=== PATIENT | male | born 1995 | race Caucasian/White ===

== ENCOUNTER 2017-08-18 21:09 | Emergency (ER) | payer BC, OTHER ==
[~2017-08-18] VITALS: Ht 175.3 cm; Wt 70.5 kg
[2017-08-18] MEDS ORDERED: NS IV 1000 ML 1,000 ML IV STA (22:13)
[2017-08-18 22:15] LABS: BASOPHILS # (AUTO) 0.1 10^3/uL (0.0-0.1); BASOPHILS % (AUTO) 1 % (0-10); EOSINOPHILS # (AUTO) 0.1 10^3/uL (0.0-0.3); EOSINOPHILS % (AUTO) 1 % (0-10); LYMPHOCYTES # (AUTO) 1.7 X 10^3 (1.0-4.0); LYMPHOCYTES % (AUTO) 18 % (12-44); MEAN CORPUSCULAR HEMOGLOBIN 29 PG (25-34); MEAN CORPUSCULAR HGB CONC 37 G/DL (32-36); MEAN CORPUSCULAR VOLUME 79 FL (80-99); MEAN PLATELET VOLUME 11.5 FL (7.4-10.4); MONOCYTES # (AUTO) 1.7 X 10^3 (0.0-1.0); MONOCYTES % (AUTO) 18 % (0-12); NEUTROPHILS # (AUTO) 5.9 X 10^3 (1.8-7.8); NEUTROPHILS % (AUTO) 63 % (42-75); PLATELET COUNT 253 10^3/uL (130-400); RED BLOOD COUNT 6.36 10^6/uL (4.35-5.85); RED CELL DISTRIBUTION WIDTH 12.7 % (10.0-14.5); WHITE BLOOD COUNT 9.5 10^3/uL (4.3-11.0)
[2017-08-18] MEDS ORDERED: ONDANSETRON 4 MG/2 ML (SDV) Z0FRAN IVP ONE ×2 (22:15)
[2017-08-18] MEDS ORDERED: NS IV 1000 ML 1,000 ML IV SCH (22:15)
[2017-08-18 22:26] LABS: ALANINE AMINOTRANSFERASE 21 U/L (0-55); ALBUMIN 4.9 GM/DL (3.2-4.5); ANION GAP 16 MMOL/L (5-14); ASPARTATE AMINO TRANSFERASE 32 U/L (5-34); BILIRUBIN,TOTAL 0.6 MG/DL (0.1-1.0); BLOOD UREA NITROGEN 18 MG/DL (7-18); BUN/CREATININE RATIO 17; CALCIUM 9.7 MG/DL (8.5-10.1); CARBON DIOXIDE 19 MMOL/L (21-32); CHLORIDE 100 MMOL/L (98-107); CREATININE SERUM 1.08 MG/DL (0.60-1.30); GFR ESTIMATED > 60; GLUCOSE 120 MG/DL (70-105); POTASSIUM 3.9 MMOL/L (3.6-5.0); SODIUM 135 MMOL/L (135-145); TOTAL PROTEIN 8.3 GM/DL (6.4-8.2)
[2017-08-18 22:37] LABS: BAND NEUTROPHILS 3 %; BASOPHILS % (MANUAL) 0 %; EOSINOPHILS % (MANUAL) 1 %; LYMPHOCYTES % (MANUAL) 23 %; NEUTROPHILS % (MANUAL) 58 %; REACTIVE LYMPHOCYTES 12 %
[2017-08-18] MEDS ORDERED: LACTATED RINGERS 1,000 ML IV ONE (23:12)
--- NOTE | 2017-08-18 23:19 | ED Abdominal Pain ---
General Chief Complaint: Abdominal/GI Problems Stated Complaint: STOMACH PAIN, DIARRHEA Nursing Triage Note: Pt c/o abdominal pain and diarrhea since yesterday evening. Sepsis Screen: No Definite Risk Source of Information: Patient Exam Limitations: No Limitations History of Present Illness Time Seen By Provider: 23:05 Initial Comments Here with complaint of all over abdominal pain and diarrhea since yesterday. States he has not been unable to eat or drink. Lasts significant urination was yesterday. Denies any recent upper respiratory symptoms. All were all complains of nausea but no vomiting and just not feeling well. Timing/Duration: 1-2 Days Severity/Quality: Moderate, Cramping Location: Generalized Abdomen Radiation: No Radiation Modifying Factors: Worsens With Eating, Improves With Resting Associated Symptoms: No Chest Pain, No Fever/Chills, Nausea/Vomiting, No Shortness of Air, No Weakness Allergies and Home Medications Allergies Coded Allergies: No Known Drug Allergies (Unverified , 08/18/17) Review of Systems Constitutional: see HPI EENTM: No Symptoms Reported Respiratory: No Symptoms Reported Cardiovascular: No Symptoms Reported Gastrointestinal: See HPI, Abdominal Pain, Diarrhea, Nausea, Denies Vomiting Genitourinary: No Symptoms Reported Musculoskeletal: no symptoms reported Skin: no symptoms reported All Other Systems Reviewed Negative Unless Noted: Yes Past Cxkjfif-Apbipe-Waokry Hx Patient Social History Alcohol Use: Regular Use Number of Drinks Today: 0 Alcohol Beverage of Choice: Beer Recreational Drug Use: No 2nd Hand Smoke Exposure: No Recent Foreign Travel: No Contact w/Someone Who Travel: No Recent Infectious Disease Expo: No Physical Abuse: No Sexual Abuse: No Mistreated: No Fear: No Immunizations Up To Date Tetanus Booster (TDap): Less than 5yrs Surgeries History of Surgeries: Yes Surgeries: Orthopedic Respiratory History of Respiratory Disorde: No Cardiovascular History of Cardiac Disorders: No Neurological History of Neurological Disord: No Genitourinary History of Genitourinary Disor: No Gastrointestinal History of Gastrointestinal Di: No Musculoskeletal History of Musculoskeletal Dis: No Psychosocial Suicide Risk Score: 1 Reviewed Nursing Assessment Reviewed/Agree w Nursing PMH: Yes Family Medical History Significant Family History: No Pertinent Family Hx Physical Exam Vital Signs VS - Last 72 Hours, by Label 08/18/17 21:55 Pulse 94 Resp 18 B/P (MAP) 141/96 (111) Pulse Ox 98 O2 Delivery Room Air Capillary Refill : Less Than 3 Seconds General Appearance: WD/WN, no apparent distress HEENT: PERRL/EOMI, pharynx normal Neck: full range of motion, supple Respiratory: lungs clear, normal breath sounds Cardiovascular: no murmur, tachycardia Gastrointestinal: soft, No guarding, No rebound, tenderness (right lower quadrant mostly but a little bit generally) Extremities: non-tender, normal inspection Back: normal inspection, no CVA tenderness, no vertebral tenderness Neurologic/Psychiatric: alert, oriented x 3 Skin: normal color, warm/dry Progress/Results/Core Measures Results/Orders Lab Results Laboratory Tests Test 08/18/17 22:00 08/19/17 00:43 Range/Units White Blood Count 9.5 4.3-11.0 10^3/uL Red Blood Count 6.36 H 4.35-5.85 10^6/uL Hemoglobin 18.5 H 13.3-17.7 G/DL Hematocrit 50 40-54 % Mean Corpuscular Volume 79 L 80-99 FL Mean Corpuscular Hemoglobin 29 25-34 PG Mean Corpuscular Hemoglobin Concent 37 H 32-36 G/DL Red Cell Distribution Width 12.7 10.0-14.5 % Platelet Count 253 130-400 10^3/uL Mean Platelet Volume 11.5 H 7.4-10.4 FL Neutrophils (%) (Auto) 63 42-75 % Lymphocytes (%) (Auto) 18 12-44 % Monocytes (%) (Auto) 18 H 0-12 % Eosinophils (%) (Auto) 1 0-10 % Basophils (%) (Auto) 1 0-10 % Neutrophils # (Auto) 5.9 1.8-7.8 X 10^3 Lymphocytes # (Auto) 1.7 1.0-4.0 X 10^3 Monocytes # (Auto) 1.7 H 0.0-1.0 X 10^3 Eosinophils # (Auto) 0.1 0.0-0.3 10^3/uL Basophils # (Auto) 0.1 0.0-0.1 10^3/uL Neutrophils % (Manual) 58 % Lymphocytes % (Manual) 23 % Monocytes % (Manual) 3 % Eosinophils % (Manual) 1 % Basophils % (Manual) 0 % Band Neutrophils 3 % Reactive Lymphocytes 12 % Blood Morphology Comment NORMAL Sodium Level 135 135-145 MMOL/L Potassium Level 3.9 3.6-5.0 MMOL/L Chloride Level 100 98-107 MMOL/L Carbon Dioxide Level 19 L 21-32 MMOL/L Anion Gap 16 H 5-14 MMOL/L Blood Urea Nitrogen 18 7-18 MG/DL Creatinine 1.08 0.60-1.30 MG/DL Estimat Glomerular Filtration Rate > 60 BUN/Creatinine Ratio 17 Glucose Level 120 H 70-105 MG/DL Calcium Level 9.7 8.5-10.1 MG/DL Total Bilirubin 0.6 0.1-1.0 MG/DL Aspartate Amino Transf (AST/SGOT) 32 5-34 U/L Alanine Aminotransferase (ALT/SGPT) 21 0-55 U/L Alkaline Phosphatase 114 40-136 U/L Total Protein 8.3 H 6.4-8.2 GM/DL Albumin 4.9 H 3.2-4.5 GM/DL Monoscreen POSITIVE H NEGATIVE Urine Color YELLOW Urine Clarity CLEAR Urine pH 6.5 5-9 Urine Specific Boyers 1.015 L 1.016-1.022 Urine Protein 2+ H NEGATIVE Urine Glucose (UA) NEGATIVE NEGATIVE Urine Ketones 2+ H NEGATIVE Urine Nitrite NEGATIVE NEGATIVE Urine Bilirubin NEGATIVE NEGATIVE Urine Urobilinogen NORMAL NORMAL MG/DL Urine Leukocyte Esterase NEGATIVE NEGATIVE Urine RBC (Auto) NEGATIVE NEGATIVE Urine RBC NONE /HPF Urine WBC NONE /HPF Urine Squamous Epithelial Cells RARE /HPF Urine Crystals NONE /LPF Urine Bacteria NEGATIVE /HPF Urine Casts NONE /LPF Urine Mucus NEGATIVE /LPF Urine Culture Indicated NO My Orders Orders - JOCELYN LUCAS MD Cbc And Manual Diff (08/18/17 22:08) Comprehensive Metabolic Panel (08/18/17 22:08) Ua Culture If Indicated (08/18/17 22:08) Ondansetron Injection (Zofran Injectio (08/18/17 22:15) Ns Iv 1000 Ml (Sodium Chloride 0.9%) (08/18/17 22:15) Ondansetron Injection (Zofran Injectio (08/18/17 22:15) Ns Iv 1000 Ml (Sodium Chloride 0.9%) (08/18/17 22:13) Saline Lock/Iv-Start (08/18/17 22:13) Monotest (08/18/17 22:37) Ct Abd/Pelv W (Appendicitis) (08/18/17 23:12) Lactated Ringers (Lr 1000 Ml Iv Solution (08/18/17 23:12) Iohexol Injection (Omnipaque 350 Mg/Ml 1 (08/18/17 23:45) Ns (Ivpb) (Sodium Chloride 0.9% Ivpb Bag (08/18/17 23:45) Rx-Ondansetron Po (Rx-Zofran Po) (08/19/17 01:31) Medications Given in ED Current Medications Medications Dose Ordered Sig/Clarice Route Start Time Stop Time Status Last Admin Dose Admin Iohexol 100 ml ONCE ONCE IV 08/18/17 23:45 08/18/17 23:46 DC 08/18/17 23:39 100 ML Lactated Ringer's 1,000 ml @ 0 mls/hr Q0M ONCE IV 08/18/17 23:12 08/18/17 23:13 DC 08/18/17 23:17 0 MLS/HR Ondansetron HCl 4 mg ONCE ONCE IVP 08/18/17 22:15 08/18/17 22:16 DC 08/18/17 22:15 4 MG Sodium Chloride 100 ml ONCE ONCE IV 08/18/17 23:45 08/18/17 23:46 DC 08/18/17 23:39 80 ML Vital Signs/I&O Vital Sign - Last 12Hours 08/18/17 21:55 Pulse 94 Resp 18 B/P (MAP) 141/96 (111) Pulse Ox 98 O2 Delivery Room Air Intake and Output 08/19/17 00:00 Intake Total 1000 ml Balance 1000 ml Blood Pressure Mean: 111 Progress Note : Progress Note Seen and evaluated. IV, labs, normal saline 1 L bolus and Zofran 4 mg IV ordered. Lab notified staff of abnormal cells consistent with mono. Wayne test ordered and this was rapidly positive. Repeat fluids bolus with 1 L LR. Patient has right lower quadrant pain on exam disproportionate to the rest of the belly exam. CT abdomen and pelvis appendicitis protocol ordered. Monitor patient. 0133: Overall improved. CT findings concerning for enterocolitis. Consideration of inflammatory disease such as Crohn's or infectious etiology noted. Laboratory findings would not indicate significant infectious etiology although still a possibility. We did attempt to get stool sample and patient was unable to provide stool sample while in the ER. I will have him follow-up at [facility] for continuing evaluation and referral to surgeon for endoscopy as needed. Also to collect stool samples if indicated. All findings and concerns as well as discharge instructions were discussed with patient and family who verbalize understanding instructions and agreement with plan. Diagnostic Imaging Diagonstic Imaging: CT Plain Films/CT/US/NM/MRI: abdomen, pelvis Comments Enterocolitis involving terminal ileum and right colon. Leading consideration is inflammatory bowel disease such as Crohn's. Differential diagnosis includes infectious etiology such as salmonella. Reviewed: Reviewed Night Hawk Study, Reviewed by Me Departure Impression Impression: Primary Impression: Generalized abdominal pain Additional Impressions: Diarrhea Qualified Codes: R19.7 - Diarrhea, unspecified Dehydration Disposition: HOME, SELF-CARE Condition: Improved Departure-Patient Inst. Decision time for Depature: 01:38 Referrals: IRMA WANG MD NO,LOCAL PHYSICIAN (PCP) Primary Care Physician Patient Instructions: Acute Abdomen (Belly Pain), Adult (DC), Dehydration, Adult (DC), Diarrhea in Adolescents and Adults Add. Discharge Instructions: All discharge instructions reviewed with patient and/or family. Voiced understanding. Drink plenty of fluids. Clear liquid diet for 24 hours and then advance as tolerated. Follow-up with [facility] on Sunday for recheck and further evaluation and referral to a surgeon for endoscopy as indicated. Return for worsening, fever, vomiting, weakness, breathing problems or other concerns as needed. Copy Copies To 1: OSWALDO DESAI MD, TIMOTHY D MD Aug 18, 2017 23:19
[2017-08-18] MEDS ORDERED: NS 100 ML (IVPB) BAG IV ONE (23:45)
[2017-08-18] MEDS ORDERED: IOHEXOL 350 MG/ML 100 ML (OMNIPAQUE 350) VIAL IV ONE (23:45)
[2017-08-19 00:53] LABS: BILIRUBIN,URINE NEGATIVE (NEGATIVE); KETONES,URINE 2+ (NEGATIVE); LEUKOCYTE ESTERASE ,URINE NEGATIVE (NEGATIVE); NITRITE,URINE NEGATIVE (NEGATIVE); PH,URINE 6.5 (5-9); PROTEIN,URINE 2+ (NEGATIVE); UROBILINOGEN,URINE NORMAL (NORMAL)
[2017-08-19 01:01] LABS: SQUAMOUS EPITHELIAL CELL,UR RARE /HPF
[2017-08-19] MEDS ORDERED: RX-ONDANSETRON 4 MG ODT (ZOFRAN) PPK #4 PO STA (01:31)
[2017-08-19 01:46] VITALS: BP 136/88
--- NOTE | 2017-08-19 08:46 | Diagnostic Imaging Report ---
PROCEDURE: CT abdomen and pelvis with contrast, rule out appendicitis. TECHNIQUE: Multiple contiguous axial images were obtained through the abdomen and pelvis after the administration of intravenous contrast. INDICATION: Abdominal pain. COMPARISON: None. FINDINGS: Lung bases are clear. The liver, gallbladder, pancreas, spleen, adrenals, kidneys, collecting systems and bladder are negative. There is mild bowel wall thickening and edema involving the terminal ileum and ascending colon. Diffusely prominent mesenteric lymph nodes are nonspecific. No free intraperitoneal air or fluid. No lymphadenopathy. No evidence of bowel obstruction. No acute osseous findings. IMPRESSION: Bowel wall thickening and edema involving the terminal ileum and proximal colon. Findings can be seen in both infectious and acute or chronic inflammatory bowel conditions such as Crohn's. Dictated by: Dictated on workstation # [id number]
[2017-08-20] MEDS ORDERED: IBUP-30 PO (10:56)
[2017-08-20] MEDS ORDERED: LOPE-134 PO (10:56)
[2017-08-20] MEDS ORDERED: BISM525O18 PO (10:56)
== END 2017-08-19 01:47 | disposition home or self-care (01) ==
LOC: ER 21:13
DX: R10.84 Generalized abdominal pain (principal); E86.0 Dehydration; R19.7 Diarrhea, unspecified
CPT/HCPCS: 36415; 74177; 80053; 81000; 85007; 85027; 86308

== ENCOUNTER 2017-08-20 09:55 | Observation (INO) | payer BC ==
[~2017-08-20] VITALS: Ht 175.3 cm; Wt 69.6 kg
[2017-08-20 10:20] VITALS: BP 145/84
[2017-08-20] MEDS ORDERED: LACTATED RINGERS 1,000 ML IV ONE (10:21)
[2017-08-20] MEDS ORDERED: IBUP-30 PO (10:56)
[2017-08-20] MEDS ORDERED: LOPE-134 PO (10:56)
[2017-08-20] MEDS ORDERED: BISM525O18 PO (10:56)
[2017-08-20] MEDS ORDERED: fentaNYL INJECTION 100 MCG/2 ML AMP ONE (11:33)
[2017-08-20 12:00] VITALS: BP 134/71
[2017-08-20] MEDS ORDERED: ONDANSETRON 4 MG/2 ML (SDV) Z0FRAN IV PRN (12:00)
[2017-08-20] MEDS: LACTATED RINGERS 1,000 ML IV SCH ×2 (13:31→18:42)
[2017-08-20] MEDS: fentaNYL INJECTION 100 MCG/2 ML AMP IV PRN ×4 (14:01→23:18)
--- NOTE | 2017-08-20 15:07 | History & Physicial ---
History of Present Illness History of Present Illness Reason for visit/HPI lower abdominal pain and bloody diarrhea 3 days duration. Date of Admission Aug 20, 2017 at 10:07 Date Seen by Provider: Aug 20, 2017 Time Seen by Provider: 14:20 I consulted on this patient on 08/20/17 15:04 Attending Physician Irma Wang MD Admitting Physician No,Local Physician Consult Allergies and Home Medications Allergies Coded Allergies: No Known Drug Allergies (Unverified , 08/18/17) Home Medications Bismuth Subsalicylate 525 Mg/15 Ml Oral.susp, 15-30 ML PO UD PRN for DIARRHEA, ( Reported) Ibuprofen 200 Mg Tablet, 400 MG PO Q6H PRN for PAIN-MILD, (Reported) Loperamide HCl 2 Mg Tablet, 2 MG PO UD PRN for DIARRHEA, (Reported) Past Zfvrjpc-Dceqsa-Ryojrl Hx Patient Social History Marrital Status: single Employed/Student: student, full-time Alcohol Beverage of Choice: Beer 2nd Hand Smoke Exposure: No Recent Foreign Travel: No Contact w/other who traveled: No Immunizations Up To Date Tetanus Booster (TDap): Less than 5yrs Surgeries Yes Orthopedic Respiratory No Cardiovascular No Neurological No Genitourinary No Gastrointestinal No Musculoskeletal No Family Medical History Significant Family History: No Pertinent Family Hx Constitutional: fever, malaise EENTM: no symptoms reported Respiratory: no symptoms reported Cardiovascular: no symptoms reported Gastrointestinal: see HPI Genitourinary: no symptoms reported Musculoskeletal: no symptoms reported Skin: no symptoms reported Psychiatric/Neurological: No Symptoms Reported Physical Exam Vital Signs Vital Sign - Last 12Hours 08/20/17 10:20 Temp 97.6 Pulse 84 Resp 20 B/P (MAP) 145/84 (104) Pulse Ox 97 O2 Delivery Room Air Capillary Refill : General Appearance: Anxious, Mild Distress HEENT: Normal ENT Inspection Neck: Normal Inspection Respiratory: Lungs Clear Cardiovascular: Regular Rate, Rhythm Gastrointestinal: Tenderness Rectal: Deferred Back: Normal Inspection Extremity: Normal Inspection Neurologic/Psychiatric: Alert, Oriented x3 Skin: Warm/Dry Comments tenderness over the right lower quadrant in the suprapubic region. No evidence of rebound tenderness. Assessment/Plan Assessment and Plan young man with acute onset of diarrhea turning to bloody diarrhea. Lower abdominal pain. Thickened terminal ileum and cecum on CT scan. Enteritis versus inflammatory bowel disease. At this point reasonable to manage symptomatically and rehydrate him. He'll require an outpatient colonoscopy once his acute symptoms improved. His family brought up consent about a positive to test for infectious mononucleosis not have therefore requested our hospitalist to be involved. Problems: IRMA WANG MD Aug 20, 2017 15:07
[2017-08-20 16:00] VITALS: BP 138/79
[2017-08-20] MEDS ORDERED: INFLUENZA TRIvalent 2017-2018 0.5 ML/45 MCG SYR IM ONE (16:30)
[2017-08-20 20:00] VITALS: BP 144/78
[2017-08-21] VITALS: BP 143/82
[2017-08-21] MEDS: LACTATED RINGERS 1,000 ML IV SCH ×3 (03:30→20:29)
[2017-08-21] MEDS: fentaNYL INJECTION 100 MCG/2 ML AMP IV PRN ×6 (03:49→22:50)
[2017-08-21 04:00] VITALS: BP 147/77
[2017-08-21 08:00] VITALS: BP 124/71
[2017-08-21 12:00] VITALS: BP 130/73
--- NOTE | 2017-08-21 14:18 | Consultation-Hospitalist ---
HPI History of Present Illness: HPI/Chief Complaint The patient is a 21-year-old white male admitted with complaints of bloody diarrhea. He reported that last Sunday morning he got up feeling his usual good state of health. By noon he began to have some abdominal discomfort and distention. He would estimate that from Sunday to Sunday he had 15-20 watery stools. He placed himself on a clear liquid diet with Sprite and Gatorade. And felt better Sunday. The diarrhea began again later Sunday and he had some blood which was red in the stools. He went to the emergency room Sunday night and received IV fluids. He felt somewhat better and tried to take fluids in small amounts but continued to have diarrhea and ultimately presented for admission. There was no previous history of bowel dysfunction. Source: patient, family Exam Limitations: no limitations Date Seen 08/21/17 Attending Physician Uziel Levi MD PCP No,Local Physician Referring Physician Date of Admission Aug 20, 2017 at 10:07 Home Medications & Allergies Home Medications Reviewed patient Home Medication Reconciliation Form Allergies Allergies Coded Allergies No Known Drug Allergies ([id number]/11/17) Past Hilzdpb-Zbvjig-Ksupas Hx Patient Social History Marrital Status: single Employed/Student: student, full-time Alcohol Use: Denies Use Alcohol Beverage of Choice: Beer Recreational Drug Use: No Smoking Status: Never a Smoker 2nd Hand Smoke Exposure: No Physical Abuse Screen: No Sexual Abuse: No Recent Foreign Travel: No Contact w/other who traveled: No Recent Hopitalizations: No Recent Infectious Disease Expo: No Immunizations Up To Date Tetanus Booster (TDap): Less than 5yrs Seasonal Allergies Seasonal Allergies: No Surgeries Yes (SHOULDER SURGERY) Orthopedic Respiratory No Cardiovascular No Neurological No Genitourinary No Gastrointestinal Yes Chronic Diarrhea Musculoskeletal No Endocrine History of Endocrine Disorders: No HEENT History of HEENT Disorders: No Cancer No Psychosocial History of Psychiatric Problem: No Integumentary History of Skin or Integumenta: No Blood Transfusions History of Blood Disorders: No Family Medical History Significant Family History: No Pertinent Family Hx Family Hx: Review of Systems Constitutional: see HPI EENTM: no symptoms reported Respiratory: no symptoms reported Cardiovascular: no symptoms reported Gastrointestinal: see HPI Genitourinary: no symptoms reported Musculoskeletal: no symptoms reported Skin: no symptoms reported Psychiatric/Neurological: No Symptoms Reported Physical Exam Physical Exam Vital Signs Vital Sign - Last 12Hours 08/20/17 10:20 Temp 97.6 Pulse 84 Resp 20 B/P (MAP) 145/84 (104) Pulse Ox 97 O2 Delivery Room Air Capillary Refill : Less Than 3 Seconds Eyes: Bilateral Eye Normal Inspection HEENT: Normal ENT Inspection Neck: Normal Inspection Respiratory: Chest Non Tender, Lungs Clear, Normal Breath Sounds, No Accessory Muscle Use, No Respiratory Distress Cardiovascular: Regular Rate, Rhythm, No Edema, No Gallop, No JVD, No Murmur, Normal Peripheral Pulses Gastrointestinal: Abnormal Bowel Sounds Extremity: Normal Capillary Refill, Normal Inspection, Normal Range of Motion, Non Tender, No Calf Tenderness, No Pedal Edema Neurologic/Psychiatric: Alert, Oriented x3, No Motor/Sensory Deficits, Normal Mood/Affect Skin: Normal Color, Warm/Dry Lymphatic: No Adenopathy Assessment/Plan Admission Diagnosis Diarrheal illness. 2.hematochezia Clinical Quality Measures DVT/VTE Risk/Contraindication: Risk Factor Score Per Nursin RFS Level Per Nursing on Admit: 1=Low/No VTE PPX MICHELE RANDLE MD Aug 21, 2017 14:17
[2017-08-21 16:00] VITALS: BP 115/76
--- NOTE | 2017-08-21 17:36 | Progress Note (SOAP) ---
Subjective Date Seen by Provider: Aug 21, 2017 Time Seen by Provider: 14:58 Subjective/Events-last exam abdominal pain much improved. No more diarrhea. Feeling hungry. Review of Systems General: No Chills, No Night Sweats, No Fatigue, No Malaise HEENT: No Head Aches, No Eye Pain, No Ear Pain, No Dysphasia, No Sinus Congestion, No Post Nasal Drip, No Sore Throat Pulmonary: No Dyspnea, No Cough, No Pleuritic Chest Pain Cardiovascular: No: Chest Pain, Palpitations, Orthopnea, Paroxysmal Noc. Dyspnea, Edema, Lt Headedness Gastrointestinal: No: Nausea, Vomiting, Abdominal Pain, Diarrhea, Constipation , Melena, Hematochezia Genitourinary: No Dysuria, No Frequency, No Incontinence, No Hematuria, No Retention Musculoskeletal: No: other, neck pain, shoulder pain, arm pain, back pain, hand pain, leg pain, foot pain Neurological: No: Weakness, Numbness, Incoordination, Change in speech, Confusion, Seizures, Other Objective Exam Vital Signs Date Time Temp Pulse Resp B/P (MAP) Pulse Ox O2 Delivery O2 Flow Rate FiO2 08/21/17 16:00 98.6 86 20 115/76 (89) 96 Room Air 08/21/17 12:00 99.1 87 18 130/73 (92) 96 Room Air 08/21/17 08:00 98.6 93 20 124/71 (88) 98 Room Air 08/21/17 04:00 98.7 76 18 147/77 (100) 98 Room Air 08/21/17 00:00 99.6 83 17 143/82 (102) 97 Room Air 08/20/17 20:44 99.1 08/20/17 20:00 100.2 90 20 144/78 (100) 96 Room Air 08/20/17 20:00 Room Air I & O 08/21/17 07:00 Intake Total 2700 ml Output Total 1100 ml Balance 1600 ml Capillary Refill : Less Than 3 Seconds General Appearance: No Apparent Distress HEENT: Normal ENT Inspection Neck: Normal Inspection Respiratory: Lungs Clear Cardiovascular: Regular Rate, Rhythm Gastrointestinal: non tender, soft Extremity: Normal Inspection Neurologic/Psychiatric: Alert, Oriented x3 Skin: Warm/Dry Assessment/Plan Assessment/Plan Assess & Plan/Chief Complaint young man with acute onset the floor abdominal pain and bloody diarrhea. Thickened terminal ileum and cecum on CT scan. Inflammatory bowel disease to be considered. Symptoms currently improved. Will advance diet and schedule an outpatient colonoscopy Final Diagnosis abdominal pain with bloody diarrhea. Abnormal CT scan. Clinical Quality Measures DVT/VTE Risk/Contraindication: Risk Factor Score Per Nursin RFS Level Per Nursing on Admit: 1=Low/No VTE PPX IRMA WANG MD Aug 21, 2017 5:36 pm
[2017-08-21] MEDS ORDERED: CATHETER FLUSH 10 ML SYR IV PRN (17:45)
[2017-08-21] MEDS ORDERED: HYDROcodone/APAP 5 MG/325 MG (LORTAB) TAB PO PRN (17:45)
[2017-08-21 20:00] VITALS: BP 124/79
[2017-08-22] VITALS: BP 125/75
[2017-08-22 04:00] VITALS: BP 108/52
[2017-08-22] MEDS: LACTATED RINGERS 1,000 ML IV SCH (06:43)
[2017-08-22 08:30] VITALS: BP 120/68
[2017-08-22] MEDS: fentaNYL INJECTION 100 MCG/2 ML AMP IV PRN (08:57)
[2017-08-22 10:43] LABS: BASOPHILS # (AUTO) 0.1 10^3/uL (0.0-0.1); BASOPHILS % (AUTO) 1 % (0-10); EOSINOPHILS # (AUTO) 0.2 10^3/uL (0.0-0.3); EOSINOPHILS % (AUTO) 4 % (0-10); LYMPHOCYTES # (AUTO) 2.1 X 10^3 (1.0-4.0); LYMPHOCYTES % (AUTO) 33 % (12-44); MEAN CORPUSCULAR HEMOGLOBIN 29 PG (25-34); MEAN CORPUSCULAR HGB CONC 37 G/DL (32-36); MEAN CORPUSCULAR VOLUME 80 FL (80-99); MEAN PLATELET VOLUME 10.6 FL (7.4-10.4); MONOCYTES # (AUTO) 1.2 X 10^3 (0.0-1.0); MONOCYTES % (AUTO) 19 % (0-12); NEUTROPHILS # (AUTO) 2.7 X 10^3 (1.8-7.8); NEUTROPHILS % (AUTO) 43 % (42-75); PLATELET COUNT 192 10^3/uL (130-400); RED BLOOD COUNT 5.28 10^6/uL (4.35-5.85); RED CELL DISTRIBUTION WIDTH 12.3 % (10.0-14.5); WHITE BLOOD COUNT 6.2 10^3/uL (4.3-11.0)
[2017-08-22 11:03] LABS: ALANINE AMINOTRANSFERASE 14 U/L (0-55); ALBUMIN 3.7 GM/DL (3.2-4.5); ANION GAP 7 MMOL/L (5-14); ASPARTATE AMINO TRANSFERASE 23 U/L (5-34); BILIRUBIN,TOTAL 0.5 MG/DL (0.1-1.0); BLOOD UREA NITROGEN 8 MG/DL (7-18); BUN/CREATININE RATIO 10; CALCIUM 8.9 MG/DL (8.5-10.1); CARBON DIOXIDE 29 MMOL/L (21-32); CHLORIDE 102 MMOL/L (98-107); CREATININE SERUM 0.77 MG/DL (0.60-1.30); GFR ESTIMATED > 60; GLUCOSE 77 MG/DL (70-105); SODIUM 138 MMOL/L (135-145); TOTAL PROTEIN 6.1 GM/DL (6.4-8.2)
--- NOTE | 2017-08-22 11:31 | Progress Note-Hospitalist ---
Progress Note HPI/CC on Admission The patient is a 21-year-old white male admitted with complaints of bloody diarrhea. He reported that last Sunday morning he got up feeling his usual good state of health. By noon he began to have some abdominal discomfort and distention. He would estimate that from Sunday to Sunday he had 15-20 watery stools. He placed himself on a clear liquid diet with Sprite and Gatorade. And felt better Sunday. The diarrhea began again later Sunday and he had some blood which was red in the stools. He went to the emergency room Sunday night and received IV fluids. He felt somewhat better and tried to take fluids in small amounts but continued to have diarrhea and ultimately presented for admission. There was no previous history of bowel dysfunction. 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 CT showed wall thickening c/w IBD like Crohn's. Dr. Levi suggested out-pt colonoscopy if pt can tolerate diet No labs done Pt is a [employer] student and not from here so he would like to do colonoscopy at home over Jeanette break Patient Interview: Pt confirms having met Dr. Levi met Pt denies having labs done today but states he has had some done recently. Pt confirms having bloody stools, but states there has been less blood with each BM Physical exam stable. Pt states he is a [employer] in [employer]. Pt states his hometown is [place] and pt's father confirms their wishes to have colonoscopy done at home over break. I informed the pt and his family that I will talk to Dr. Levi more and Dr. Levi will discuss this with the pt further. Pt states his pain is not bad right now. Pt states his last dose was around 0900 , pt also states that he did not want to take more in case his pain gets worse later on. Pt's father denies bowel problems in family hx, but states that the grandfather had bowel issues due to a symptoms from a car wreck. Pt denies needing anything and will order food after labs. Phlebotomy was in the room prior to end of pt interview. AFVSS, pleasant, O x 3, family at bedside RRR, CTAB Non-tender abdomen No edema Laboratory Tests 08/22/17 10:35 Assessment: Hematochezia with CT evidence of bowel thickening c/w Crohn's needs scope as outpt Plan: Labs were reviewed and all nl Confer with Dr. Gurmeet PARRY if ok with Dr Levi Scribed by Jessica Wallace under direct supervision of Dr. Edie Barrios. EDIE BARRIOS DO Aug 22, 2017 11:31
[2017-08-22 13:30] VITALS: BP 120/68
--- NOTE | 2017-08-22 15:06 | Progress Note (SOAP) ---
Subjective Date Seen by Provider: Aug 22, 2017 Time Seen by Provider: 11:45 Subjective/Events-last exam Abdominal pain resolved. Passing normal stools. Afebrile. Vital signs stable. Abdomen soft and nontender. Review of Systems General: No Chills, No Night Sweats, No Fatigue, No Malaise HEENT: No Head Aches, No Eye Pain, No Ear Pain, No Dysphasia, No Sinus Congestion, No Post Nasal Drip, No Sore Throat Pulmonary: No Dyspnea, No Cough, No Pleuritic Chest Pain Cardiovascular: No: Chest Pain, Palpitations, Orthopnea, Paroxysmal Noc. Dyspnea, Edema, Lt Headedness Gastrointestinal: No: Nausea, Vomiting, Abdominal Pain, Diarrhea, Constipation , Melena, Hematochezia Genitourinary: No Dysuria, No Frequency, No Incontinence, No Hematuria, No Retention Musculoskeletal: No: other, neck pain, shoulder pain, arm pain, back pain, hand pain, leg pain, foot pain Neurological: No: Weakness, Numbness, Incoordination, Change in speech, Confusion, Seizures, Other Objective Exam Vital Signs Date Time Temp Pulse Resp B/P (MAP) Pulse Ox O2 Delivery O2 Flow Rate FiO2 08/22/17 08:30 97.2 84 16 120/68 (85) 94 Room Air 08/22/17 04:00 96.5 80 17 108/52 (70) 95 Room Air 08/22/17 00:00 98.1 88 18 125/75 (92) 97 Room Air 08/21/17 21:00 Room Air 08/21/17 20:00 98.9 85 20 124/79 (94) 96 Room Air 08/21/17 16:00 98.6 86 20 115/76 (89) 96 Room Air I & O 08/22/17 07:00 Intake Total 3970 ml Output Total 925 ml Balance 3045 ml Capillary Refill : Less Than 3 Seconds General Appearance: Anxious HEENT: Normal ENT Inspection Neck: Normal Inspection Respiratory: Lungs Clear Gastrointestinal: non tender, soft Skin: Warm/Dry Results Lab Laboratory Tests 08/22/17 10:35: White Blood Count 6.2, Red Blood Count 5.28, Hemoglobin 15.5, Hematocrit 42, Mean Corpuscular Volume 80, Mean Corpuscular Hemoglobin 29, Mean Corpuscular Hemoglobin Concent 37H, Red Cell Distribution Width 12.3, Platelet Count 192, Mean Platelet Volume 10.6H, Neutrophils (%) (Auto) 43, Lymphocytes (%) (Auto) 33 , Monocytes (%) (Auto) 19H, Eosinophils (%) (Auto) 4, Basophils (%) (Auto) 1, Neutrophils # (Auto) 2.7, Lymphocytes # (Auto) 2.1, Monocytes # (Auto) 1.2H, Eosinophils # (Auto) 0.2, Basophils # (Auto) 0.1, Sodium Level 138, Potassium Level 4.0, Chloride Level 102, Carbon Dioxide Level 29, Anion Gap 7, Blood Urea Nitrogen 8, Creatinine 0.77, Estimat Glomerular Filtration Rate > 60, BUN/ Creatinine Ratio 10, Glucose Level 77, Calcium Level 8.9, Total Bilirubin 0.5, Aspartate Amino Transf (AST/SGOT) 23, Alanine Aminotransferase (ALT/SGPT) 14, Alkaline Phosphatase 69, Total Protein 6.1L, Albumin 3.7 Assessment/Plan Assessment/Plan Assess & Plan/Chief Complaint young man with acute onset the floor abdominal pain and bloody diarrhea. Thickened terminal ileum and cecum on CT scan. Inflammatory bowel disease to be considered. Symptoms currently improved. Will advance diet and schedule an outpatient colonoscopy Lower abdominal pain and bloody diarrhea, currently resolved. Thickened terminal ileum and cecum on CT scan. I have recommended an outpatient colonoscopy and the [place]. Final Diagnosis Abdominal pain with bloody diarrhea Clinical Quality Measures DVT/VTE Risk/Contraindication: Risk Factor Score Per Nursin RFS Level Per Nursing on Admit: 1=Low/No VTE PPX IRMA WANG MD Aug 22, 2017 3:06 pm
== END 2017-08-22 13:19 | disposition home or self-care (01) ==
LOC: UNDOADMOB 10:07 → 4TH 10:07 → UNDODISOB 08-22 13:45
PROVIDERS: ADMIT Surgery; ATTEND Surgery
DX: R19.7 Diarrhea, unspecified (principal); K92.1 Melena; R10.31 Right lower quadrant pain; R93.3 Abnormal findings on diagnostic imaging of other parts of digestive tract
CPT/HCPCS: 36415; 80053; 85025; 87045; 87046; 99211; G0378